=== PATIENT | male | born 1940 | race Caucasian/White ===

== ENCOUNTER 2019-04-21 14:54 | Emergency (ER) | payer OTHER, MEDICAID ==
[~2019-04-21] VITALS: Ht 177.8 cm; Wt 79.4 kg
--- NOTE | 2019-04-21 15:00 | NUR ---
Patient to ER bed 07 to gown for evaluation. Side rails up.
[2019-04-21 15:01] VITALS: BP_SYST 102
--- NOTE | 2019-04-21 15:13 | NUR ---
Patients AOx4 via BLS from [facility] care with c/o left clavicle pain since this morning. patient is a poor historian states he woke up like this. patient denies hitting his head and denies any fall prior to waking up in the morning. patient is wearing a clavicle splint. patient currently denies pain to the area. patient has no redness or bursing to the clavicle area at the time of assessment. no other complaint or injury at this time.
--- NOTE | 2019-04-21 15:19 | NUR ---
ER at bedside examining patient.
--- NOTE | 2019-04-21 16:00 | NUR ---
patient resting on stretcher in stable condition.
--- NOTE | 2019-04-21 17:24 | NUR ---
Patient to be transferred to [facility]. Is being transferred due to higher level of care. Receiving facility has accepting physician and available space. ER physician has signed transfer form. Patient or responsible constitution party has agreed to transfer and signed form. Patient belongings inventoried and will be sent with patient. Copy of nursing notes, lab reports, EKG, Physicians Orders and X-rays to be sent with patient. Report called to [facility] at receiving facility. Care ambulance service has been called for transfer. ETA is 1900.
[2019-04-21 17:27] VITALS: BP_SYST 102
== END 2019-04-21 17:24 ==
LOC: SED 14:54
DX: M25.512 Pain in left shoulder (principal); G20 Parkinson's disease; F31.9 Bipolar disorder, unspecified; K21.9 Gastro-esophageal reflux disease without esophagitis; I10 Essential (primary) hypertension; G30.9 Alzheimer's disease, unspecified; F02.80 Dementia in other diseases classified elsewhere, unspecified severity, without behavioral disturbance, psychotic disturbance, mood disturbance, and anxiety
CPT/HCPCS: 71045; 73000-TC; 99283